=== PATIENT | male | born 1965 | race Caucasian/White ===

== ENCOUNTER 2017-04-06 00:51 | Outpatient (CLI) | payer MEDICAID | END 2017-04-06 00:52 | disposition critical access hospital (66) | LOC: EMS 00:51 | PROVIDERS: ATTEND Surgery | DX: R11.2 Nausea with vomiting, unspecified (principal) | CPT/HCPCS: A0425; A0427 ==

== ENCOUNTER 2017-04-06 01:22 | Emergency (ER) | payer MEDICAID ==
--- NOTE | 2017-04-06 01:22 | ED Physician Documentation ---
History of Present Illness - Stated complaint Stated Complaint: ANAPHYLAXIS - History obtained from History obtained from: Patient, EMS - History of Present Illness Timing: Prior to arrival (00:15), Today Pain level now: 5 (back (chronic)) Improved by: no ameliorating factors Worsened by: no exacerbating factors Associated symptoms: abdominal cramping - Additonal information Additional information: patient had a hamburger tonight that had pineapple on it, subsequently experienced abdominal cramping, nausea and vomiting, and generalized pruritic rash. He had sensation of throat constriction. 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 He used epi-pen prior to medics arrival. Medics established IV, gave 50mg benadryl IV and IV fluids (900 milliliters by the time he arrived in ED). On medics arrival to scene, patient had SBP in 70's, subsequent readings en route have been in the 80's-90 range. Patient reports feeling improvement en route. Review of Systems Constitutional: reports: Chills. denies: Fever, Sweats Cardiac: reports: Reviewed and negative Respiratory: reports: Reviewed and negative GI: reports: Abdominal Pain, Nausea, Vomiting Skin: reports: Rash PD PAST MEDICAL HISTORY - Past Medical History Past Medical History: Yes Cardiovascular: Hypertension Endocrine/Autoimmune: Type 2 diabetes - Past Surgical History Past Surgical History: No - Present Medications Home Medications: Ambulatory Orders Medication Instructions Recorded Confirmed Bupropion HCl [Bupropion Xl] 300 mg PO DAILY 04/06/17 04/06/17 Epinephrine [Epipen 2-Naresh] 0.3 mg IJ ONCE #1 auto.injct 04/06/17 Epinephrine [Epipen 2-Naresh] 1 mg IM PRN PRN 04/06/17 04/06/17 Metoprolol Succinate/Hctz 1 mg PO DAILY 04/06/17 04/06/17 [Metoprolol ER-Hctz 100-12.5 mg] Propranolol [Inderal] 20 mg PO TID PRN 04/06/17 04/06/17 predniSONE [Deltasone] 40 mg PO DAILY 3 Days 04/06/17 - Allergies Allergies/Adverse Reactions: Allergies Allergy/AdvReac Type Severity Reaction Status Date / Time banana AdvReac Anaphylaxis Verified 04/06/17 01:36 Penicillins AdvReac Anaphylaxis Verified 04/06/17 01:37 pineapple AdvReac Anaphylaxis Verified 04/06/17 01:37 egg whites AdvReac Anaphylaxis Uncoded 04/06/17 01:36 PD ED PE NORMAL - Vitals Vital signs reviewed: Yes - General General: Alert and oriented X 3, Well developed/nourished, Other (generalized tremulousness) - HEENT HEENT: Moist mucous membranes - Neck Neck: Supple, no meningeal sign - Cardiac Cardiac: RRR, No murmur - Respiratory Respiratory: No respiratory distress, Clear bilaterally - Abdomen Abdomen: Soft, Non distended - Neuro Neuro: Alert and oriented X 3 PD ED PE EXPANDED - Derm Derm: Rash (generalized, confluent blanching erythema without discrete urticaria /hives) Results - Vitals Vitals: Vital Signs - 24 hr 04/06/17 04/06/17 04/06/17 01:29 01:44 01:55 Temperature 36.4 C L Heart Rate 94 87 88 Respiratory 22 18 17 Rate Blood Pressure 113/76 107/63 123/95 H O2 Saturation 95 97 97 04/06/17 04/06/17 04/06/17 02:25 03:05 03:26 Temperature Heart Rate 82 88 85 Respiratory 16 15 17 Rate Blood Pressure 132/78 H 118/64 119/69 O2 Saturation 97 96 04/06/17 03:51 Temperature Heart Rate 85 Respiratory 17 Rate Blood Pressure O2 Saturation 99 Oxygen O2 Source Room air - Labs Labs: Laboratory Tests 04/06/17 04/06/17 02:07 02:07 WBC 17.3 H RBC 4.86 Hgb 15.0 Hct 44.0 MCV 90.5 MCH 30.8 MCHC 34.0 RDW 13.3 Plt Count 346 MPV 7.9 Neut # 14.3 H Lymph # 2.6 [place] # 0.2 Eos # 0.1 Baso # 0.1 Absolute Nucleated RBC 0.01 Nucleated RBCs 0.0 Sodium 135 Potassium 3.4 L Chloride 101 Carbon Dioxide 23 Anion Gap 11.0 BUN 19 Creatinine 1.5 H Estimated GFR (MDRD) 50 L Glucose 200 H Calcium 8.4 L Total Bilirubin 1.0 AST 48 H ALT 77 H Alkaline Phosphatase 61 Total Protein 7.3 Albumin 4.3 Globulin 3.0 Albumin/Globulin Ratio 1.4 Lipase 38 PD MEDICAL DECISION MAKING - ED course Complexity details: reviewed results, re-evaluated patient, considered differential, d/w patient ED course: Patient remained stable and normotensive during ED stay. His erythema resolved and aside from drowsiness he was asymptomatic prior to discharge. He was given toradol for his chronic back pain and reported good relief with this. Departure - Departure Disposition: 01 Home, Self Care Clinical Impression: Anaphylaxis Condition: Good Instructions: ED Allergic Reaction General Other, ED Anaphylaxis General Prescriptions: predniSONE [Deltasone] 40 mg PO DAILY 3 Days Epinephrine [Epipen 2-Naresh] 0.3 mg IJ ONCE #1 auto.injct Discharge Date/Time: 04/06/17 03:52
[2017-04-06] MEDS ORDERED: SODIUM CHLORIDE 0.9% 1,000 ML IV STA (01:48)
[2017-04-06] MEDS ORDERED: KETOROLAC 60 MG/2 ML VIAL IVP STA (01:48)
[2017-04-06] MEDS ORDERED: KETOROLAC 30 MG/ML VIAL ONE (01:57)
[2017-04-06] MEDS ORDERED: methylPREDNISolone SUCCINATE 125 MG/2 ML VIAL IVP STA (02:18)
[2017-04-06 02:22] LABS: BASOPHILS # (AUTO) 0.1 10^3/uL (0.0-0.1); BASOPHILS % (AUTO) 0.3 %; EOSINOPHILS # (AUTO) 0.1 10^3/uL (0.0-0.7); EOSINOPHILS % (AUTO) 0.6 %; LYMPHOCYTES # (AUTO) 2.6 10^3/uL (1.5-3.5); MEAN CORPUSCULAR HEMOGLOBIN 30.8 pg (27.0-31.0); MEAN CORPUSCULAR VOLUME 90.5 fL (80.0-94.0); MEAN PLATELET VOLUME 7.9 fL (7.4-11.4); MONOCYTES # (AUTO) 0.2 10^3/uL (0.0-1.0); MONOCYTES % (AUTO) 1.3 %; NEUTROPHILS # (AUTO) 14.3 10^3/uL (1.5-6.6); NEUTROPHILS % (AUTO) 82.8 %; RED BLOOD COUNT 4.86 10^6/uL (4.70-6.10); RED CELL DISTRIBUTION WIDTH 13.3 % (12.0-15.0); UNCORRECTED WHITE BLOOD COUNT 17.3 x10^3/uL; WHITE BLOOD COUNT 17.3 x10^3/uL (4.8-10.8)
[2017-04-06 02:24] LABS: ALBUMIN/GLOBULIN RATIO 1.4 (1.0-2.2); CALCIUM 8.4 mg/dL (8.5-10.3); CREATININE 1.5 mg/dL (0.6-1.2); POTASSIUM 3.4 mmol/L (3.5-5.0); TOTAL PROTEIN 7.3 g/dL (6.7-8.2)
[2017-04-06] MEDS ORDERED: methylPREDNISolone SUCCINATE 125 MG/2 ML VIAL ONE (02:26)
[2017-04-06 03:29] VITALS: BP 119/69
== END 2017-04-06 03:52 | disposition home or self-care (01) ==
LOC: ED 01:22
DX: R11.2 Nausea with vomiting, unspecified (principal); T78.09XA Anaphylactic reaction due to other food products, initial encounter; I10 Essential (primary) hypertension; E11.9 Type 2 diabetes mellitus without complications
CPT/HCPCS: 36415; 80053; 83690; 85025; 96374; 96375; 99283; 99284